=== PATIENT | male | born 1995 | race African-American/Black ===

== ENCOUNTER 2018-07-06 15:16 | Inpatient (IN) | payer BC, OTHER ==
[~2018-07-06] VITALS: Ht 177.8 cm; Wt 72.6 kg
--- NOTE | 2018-09-13 20:00 | NUR ---
PRE ADMISSION NOTE Pt is a 23 y/o male seen at intake, A&Ox4 and is ambulatory with steady gait. Pt presents with anxiety, body aches, stuffy nose, difficulty concentrating, poor eye contact and slumped posture. Pt is here for heroin (smoke) 1-2 g daily for 2 months, last intake of 2 g today at 1400. Pt also used Xanax 4-8 mg daily for 2 months, last intake of 8 mg at 0900 today and methamphetamine (smoke or snort) 2 g daily for 2 months, last intake of 1.5 g today at 1400. Pt also smokes marijuana 2 g daily, last intake of 2 g 2 days ago. NKA and PMH of epilepsy and seizures r/t withdrawal and anxiety. Vital signs: BP 159/83, HR 86, T 98.2, RR 16, 02 97%, and pain 5/10 body aches. Pt is stable to arrive on the unit. Addendum: 09/14/18 at 0119 by DONAVAN HWANG RN CORRECTION: Length of use is 1 month for all substances.
[2018-09-13] MEDS ORDERED: MAG HYDROX/AL HYDROX/SIMETH 30 ML LIQUID UDC PO PRN (20:15)
[2018-09-13] MEDS ORDERED: diphenhydrAMINE 50 MG CAPSULE PO PRN (20:15)
[2018-09-13] MEDS ORDERED: CLONIDINE HCL 0.1 MG TABLET PO PRN (20:15)
[2018-09-13] MEDS ORDERED: LOPERAMIDE HCL 2 MG CAPSULE PO PRN (20:15)
[2018-09-13] MEDS ORDERED: METHOCARBAMOL 750 MG TABLET PO PRN (20:15)
[2018-09-13] MEDS ORDERED: ONDANSETRON ODT 4 MG TAB.RAPDIS SL PRN (20:15)
[2018-09-13] MEDS ORDERED: SRC BENZO WITHDRAWAL ADMITTING PROTOCOL XX PRN (20:15)
[2018-09-13] MEDS ORDERED: HYDROXYZINE PAMOATE 25 MG CAPSULE PO PRN (20:15)
[2018-09-13] MEDS ORDERED: MAGNESIUM HYDROXIDE 30 ML LIQUID UDC PO PRN (20:15)
[2018-09-13] MEDS ORDERED: MIRALAX 17 GM POWD.PACK PO PRN (20:15)
[2018-09-13] MEDS ORDERED: IBUPROFEN 600 MG TABLET PO PRN (20:15)
[2018-09-13] MEDS ORDERED: LORAZEPAM 1 MG TABLET PO PRN ×2 (20:15)
[2018-09-13] MEDS ORDERED: SRC OPIOID WITHDRAWAL ADMITTING PROTOCOL XX PRN (20:15)
[2018-09-13] MEDS ORDERED: ONDANSETRON 4 MG/2 ML VIAL IM PRN (20:15)
[2018-09-13] MEDS ORDERED: ACETAMINOPHEN 325 MG TABLET PO PRN (20:15)
[2018-09-13] MEDS ORDERED: LORAZEPAM 2 MG/1 ML VIAL IM PRN (20:15)
[2018-09-13 20:18] VITALS: BP 159/83
--- NOTE | 2018-09-13 20:18 | NUR ---
ADMISSION NOTE Pt arrived on the unit at 2018 for medically supervised withdrawal from benzos and opiates. Skin and body check completed, no contraband found and skin intact. Pt has not provided UDS, but has provided blood draw. Pt is 510 and weighs 160 lbs. Initial COWS 10 and CIWA 9. Pt presents with anxiety, body aches, stuffy nose, restlessness, stomach cramps, difficulty concentrating, poor eye contact and slumped posture. Pt is ambulatory with steady gait. PEERLA. Respirations even and unlabored, lung sounds clear. Pt reports last BM this morning. Vital signs: BP 159/83, HR 86, T 98.2, RR 16, 02 97%, and pain 5/10 body aches. Substance Use History: 1. Xanax 4-8 mg daily for 1 month, last intake of 8 mg at 0900 today. Pt started using Xanax 8 years ago d/t anxiety. 2. Heroin (smoke) 2 g daily for 1 month, last intake of 2 g at 1400 today. Pt started using heroin 3 years ago d/t anxiety. 3. Methamphetamine (smoke/snort, mostly smoke) 2 g daily for 1 month, last intake of 1.5 g at 1400 today. Pt started using methamphetamine 2 years ago d/t poor social influences. 4. Marijuana 2 g daily for 1 month, last intake of 2 g on 09/11/18. Pt started smoking marijuana 10 years ago d/t poor social influences. Pt reports the following treatment histories: [facility] between July 06-2017, [facility] in [place] for 32 days after [facility] in June 2018, [facility] in [place] for 4 days in May 2018 and [facility] in [place] for 29 days in June 2016. Pt reports leaving AMA at [facility] and relapsed after. Pt also reports relapsing after the 32 days from [facility] after discharge from [facility] in June 2018. Pt relapsed after 2 weeks from [facility] in 2015. Pt reports that he has difficulty staying sober and states, "I always go back to [place] with all my old friends and social influences which doesn't help." Pt also stated, "I feel like it's because of me too, like how bad I want to actually get sober, and certain people and situations I put myself into doesn't help and I relapse." He reports his longest period of sobriety was 32 days at [facility] in June-July 2018. Pt reports that this time will be different and states, "This time I genuinely want to be sober and I feel like it's really just taken me three times of going back to [place] to realize I need to try something different because this time I'm moving to [place]." He reports that he has had 4 attempts of sobriety at a treatment facility, but "countless attempts" on his own. Typical S/S of withdrawal include the following: anxiety, chills, sweats, tremors, body aches, and runny nose. Pt reports financial strain as a consequence of using. Denies hx of overdoses, but states he has had "close to 100 blackouts from benzo use." Pt reports his support system includes his family and friends. He sleeps at friends couches in [place] and is currently unemployed. He reports having a Bachelors Degree in Criminology. Pt is full code, regular diet, NKA to food or meds, and on fall/seizure precautions. Pt reports PMH of anxiety and epilepsy. Pt did not bring his home medications, but reports taking Lamictal ER 250 mg daily in AM and Keppra 750 mg BID. Pt started smoking recently and reports smoking 1 pack daily and does not have a desire to quit at this time. Pt is not a candidate for MRSA. PCP is Dr. Weston and psychiatrist is Dr. Trevino. Pt reports that his mother has hx of ETOH abuse and his brother and father drink socially. Encouraged pt to be open and honest in his recovery. Oriented pt to room and unit, educated pt about rules and expectations of the unit and how to use the call light.
[2018-09-13 20:24] LABS: BASOPHILS # (AUTO) 0.1 K/uL (0.0-8.0); BASOPHILS % (AUTO) 0.4 % (0.0-2.0); EOSINOPHILS # (AUTO) 2.8 K/uL (0.0-0.7); EOSINOPHILS % (AUTO) 20.5 % (0.0-7.0); HEMATOCRIT 50.8 % (36.7-47.1); HEMOGLOBIN 17.6 g/dL (12.5-16.3); LYMPHOCYTES # (AUTO) 3.1 K/uL (20.0-40.0); LYMPHOCYTES % (AUTO) 23.1 % (20.5-51.5); MEAN CORPUSCULAR HEMOGLOBIN 31.3 uug (23.8-33.4); MEAN CORPUSCULAR HGB CONC 35 g/dL (32.5-36.3); MEAN CORPUSCULAR VOLUME 90.5 fL (73.0-96.2); MONOCYTES # (AUTO) 0.9 K/uL (2.0-10.0); MONOCYTES % (AUTO) 6.9 % (0.0-11.0); NEUTROPHILS # (AUTO) 6.7 K/uL (1.8-8.9); NEUTROPHILS % (AUTO) 49.1 % (38.5-71.5); PLATELET COUNT (AUTO) 306 K/uL (152-348); RED BLOOD CELL COUNT(AUTO) 5.62 MIL/uL (4.06-5.63); WHITE BLOOD COUNT (AUTO) 13.6 K/uL (3.6-10.2)
[2018-09-13 20:37] LABS: ETHANOL < 3 MG/DL (0-0)
[2018-09-13 20:41] LABS: ALANINE AMINOTRANSFERASE 32 U/L (16-63); ALKALINE PHOSPHATASE 101 U/L (50-136); ASPARTATE AMINOTRANSFERASE 25 U/L (15-37); BILIRUBIN,TOTAL 0.4 mg/dL (0.2-1.0); CARBON DIOXIDE 32 mmol/L (21-32); CHLORIDE 95 mmol/L (98-107); CREATININE 0.9 mg/dL (0.6-1.3); GLUCOSE 95 mg/dL (74-106); MAGNESIUM 1.8 mg/dL (1.8-2.4); POTASSIUM 3.8 mmol/L (3.5-5.1); TOTAL PROTEIN, SERUM 8.9 g/dL (6.4-8.2); UREA NITROGEN, BLOOD 6 mg/dL (7-18)
[2018-09-13 20:51] LABS: THYROID STIMULATING HORMONE 1.266 mIU/mL (0.358-3.740)
[2018-09-13 20:55] LABS: EOSINOPHILS % (MANUAL) 21 % (0-8); LYMPHOCYTES % (MANUAL) 25 % (20-40); MONOCYTES % (MANUAL) 6 % (2-10); NEUTROPHILS % (MANUAL) 48 % (42-75)
[2018-09-13] MEDS: BUPRENORPHINE HCL 2 MG TAB.SUBL SL PRN (23:33)
--- NOTE | 2018-09-13 23:33 | NUR ---
PRN SUBUTEX AND ATIVAN 1 MG ADMINISTRATION COWS 13 and CIWA 12. Pt presents with anxiety, restlessness, chills, hot and cold sweats, elevated HR, stuffy nose, photosensitivity, body aches, enlarged pupils, and stomach cramps. Safety measures in place. Call light within reach. Will continue to monitor.
[2018-09-14] VITALS: BP 147/98
--- NOTE | 2018-09-14 00:03 | NUR ---
PRN SUBUTEX REASSESSMENT COWS 9. Pt reports improvement in anxiety, restlessness, and body aches. Pt is laying in bed at this time. Respirations even and unlabored. Safety measures in place. Call light within reach. Will continue to monitor.
--- NOTE | 2018-09-14 00:33 | NUR ---
PRN ATIVAN 1 MG REASSESSMENT Pt laying in bed with eyes closed, reassessment of CIWA to be deferred until pt is awake. Respirations even and unlabored. Safety measures in place. Call light within reach. Will continue to monitor.
[2018-09-14] MEDS ORDERED: LAMO250T PO (01:48)
[2018-09-14] MEDS ORDERED: LEVE500T9 PO (01:48)
[2018-09-14 03:49] LABS: *AMPHETAMINE, URINE POSITIVE (NEGATIVE); *BARBITURATE, URINE NEGATIVE (NEGATIVE); *CANNABINOID, URINE POSITIVE (NEGATIVE); *COCCAINE, URINE NEGATIVE (NEGATIVE); *OPIATE, URINE POSITIVE (NEGATIVE); *PHENCYCLIDINE SCREEN,URINE NEGATIVE (NEGATIVE)
[2018-09-14 04:00] VITALS: BP 144/96
--- NOTE | 2018-09-14 07:28 | NUR ---
END OF SHIFT Pt is a 23 y/o male admitted on 09/13/18 for medically supervised withdrawal from benzos and opiates. Pt was also using methamphetamine. Pt presented with anxiety, body aches, stuffy nose, restlessness, stomach cramps, difficulty concentrating, poor eye contact, and slumped posture. PRN Subutex and Ativan 1 mg administered at 2330, which were effective. Last COWS 9 and CIWA 12. Pt slept 7 hours. Intake 1490 ml, void x 2, stool x 0. Safety measures in place. Call light within reach. Pts needs have been met. Endorsed to day shift nurse.
--- NOTE | 2018-09-14 07:30 | NUR ---
Start of Shift Notes: Received endorsement from night nurse. Patient is a 23 year old male admitted for BZO and opiate withdrawal who is on PRNs at this time to manage his withdrawal symptoms. Per night report, patient was given PRN Ativan and Subutex during the night. Last . Slept for a total of 7 hours. Received patient in his room. Awake, alert and oriented x 4. Denies S/I or H/I noted. No AV hallucinations. However, he complains of mild light sensitivity and prefers the room dark. He is noted to be diaphoretic with facial flushing. Restlessness is seen to his BLE and with noted gross tremors and piloerection of the skin. Educated patient on his current plan of care for the day and his medication regimen. Encouraged oral fluid intake and encouraged group participation to learn new skills to prevent relapse. All needs met and attended. Will continue to monitor closely.
[2018-09-14 08:00] VITALS: BP 119/67
[2018-09-14] MEDS: BUPRENORPHINE HCL 2 MG TAB.SUBL SL PRN (08:39)
[2018-09-14] MEDS: MULTIVITAMINS,THERAPEUTIC TABLET PO SCH (08:39)
--- NOTE | 2018-09-14 08:39 | NUR ---
Subutex 4 mg/Ativan 2 mg PO given: 14/ 16, patient noted with diaphoresis with facial flushing, gross tremors, anxiety, agitation, irritability, restlessness, mild light sensitivity and mild bone/joint aches. Medicated patient with Subutex 4 mg SL and Ativan 2 mg PO as ordered. Will monitor for effectiveness.
[2018-09-14] MEDS ORDERED: TUBERCULIN,PURIF.PROT.DERIV. 5 TU/0.1 ML TEST ID ONE (09:00)
--- NOTE | 2018-09-14 09:09 | NUR ---
Re-assessment: Subutex 4 mg SL COWS 9, patient appears less anxious and less yawning noted. He continues to complain of intermittent perspiration and chills, and sweats. PRN Subutex was effective in reducing his withdrawal symptoms.
--- NOTE | 2018-09-14 09:39 | NUR ---
Re-assessment: Ativan CIWA 13, patient noted with less anxiety, less sweating, and less agitation noted. PRN Ativan effective in reducing his withdrawal symptoms. Will continue to monitor.
--- NOTE | 2018-09-14 10:40 | NUR ---
Therapist prompted client to attend group therapy.
--- NOTE | 2018-09-14 11:07 | NUR ---
RT prompted pt to attend rec therapy groups.
[2018-09-14 12:00] VITALS: BP 129/72
[2018-09-14] MEDS ORDERED: 5 DAY TAPER BUPRENORPHINE -SERENITY PROTOCOL SL PRN (12:45)
[2018-09-14] MEDS ORDERED: DIAZEPAM 10 MG TABLET PO PRN ×2 (12:45)
[2018-09-14] MEDS ORDERED: 5 DAY TAPER VALIUM-SERENITY PROTOCOL PO PRN (12:45)
[2018-09-14] MEDS ORDERED: DIAZEPAM 5 MG TABLET PO PRN (12:45)
[2018-09-14] MEDS ORDERED: LAMOTRIGINE 250 MG PO SCH (13:00)
[2018-09-14] MEDS: BUPRENORPHINE HCL 2 MG TAB.SUBL SL SCH ×3 (13:16→20:37)
[2018-09-14] MEDS: LEVETIRACETAM 500 MG TABLET PO SCH ×2 (13:16→16:21)
[2018-09-14] MEDS: DIAZEPAM 10 MG TABLET PO SCH ×2 (14:19→20:38)
[2018-09-14 16:00] VITALS: BP 138/85
--- NOTE | 2018-09-14 18:46 | NUR ---
End of Shift Notes: Patient initiated his 5day Valium and 5-day Subutex taper as ordered to manage his withdrawal symptoms related to BZO and opiates. VS monitored closely. No significant abnormalities noted. Withdrawal symptoms were closely monitored. Initial COWS 14, CIWA 16. Patient presented with facial flushing, diaphoresis, difficulty concentrating, fatigue, gross tremors, anxiety, agitation, chills, hot flashes, restlessness and generalized discomfort. Medicated patient with Subutex 4 mg and Ativan 2 mg at 0839 with help. Last COWS 7/CIWA 11. Patient verbalizes that Valium and Subutex has been effective in reducing his withdrawal symptoms. Appetite fair. He was unable to participate in group and activities due to his withdrawal symptoms. All needs met and attended. Will continue to monitor closely.
--- NOTE | 2018-09-14 19:53 | NUR ---
START OF SHIFT NOTE Rcvd report from outgoing nurse. Pt is a 23 y/o male A/O to person, place, time, and purpose. Pt was admitted for medically supervised withdrawal from Benzodiazepines, and Opiates. Pt is on day 1 of a 5 day Subutex and Valium taper. Pt has been presenting w/ diarrhea, nausea, sweats, chills, body aches, drowsiness, anxiety, depressed mood, and flat affect. Pt rcvd PRN Subutex and Ativan, both were noted effective by outgoing nurse. Last CIWA 11 and COWS 7 @ 1600. Call light is within reach. Pt will continue to be monitored and needs met.
[2018-09-14 20:00] VITALS: BP 128/73
[2018-09-14] MEDS: LAMOTRIGINE 100 MG TABLET PO SCH ×2 (20:38→20:47)
[2018-09-14] MEDS: LAMOTRIGINE 25 MG TABLET PO SCH ×2 (20:38→20:47)
--- NOTE | 2018-09-14 20:38 | NUR ---
PRN IMODIUM ADMINISTRATION Imodium 4mg given for first bought of diarrhea. Will reassess pt in 1hr.
--- NOTE | 2018-09-14 20:40 | NUR ---
NURSING NOTE Pt refused to take Lamictal, both the 100 and 25mg doses. Pt states that he only takes it in the morning and that he told the doctor this. I educated him on risks of not taking medication when prescribed. He still refused. Medication was pulled and opened before pt stated all this.
--- NOTE | 2018-09-14 21:38 | NUR ---
PRN IMODIUM REASSESSMENT Pt states that he has not had any bought of diarrhea. He also states that he hasn't had a BM yet either. Will continue to monitor pt.
--- NOTE | 2018-09-15 | NUR ---
CIWA AND COWS DEFERRED. V/S REFUSED Pt is in bed w/ his eyes closed. Pt's respirations are unlabored and even.
--- NOTE | 2018-09-15 04:00 | NUR ---
CIWA AND COWS DEFERRED. V/S REFUSED Pt is in bed w/ his eyes closed. Pt's respirations are unlabored and even.
--- NOTE | 2018-09-15 07:14 | NUR ---
END OF SHIFT NOTE Endorsed pt to oncoming nurse. Pt is a 23 y/o male A/O to person, place, time, and purpose. Pt was admitted for medically supervised withdrawal from Benzodiazepines, and Opiates. Pt completed day 1 of a 5 day Subutex and Valium taper. Pt continued presenting w/ diarrhea, nausea, sweats, chills, body aches, drowsiness, anxiety, depressed mood, and flat affect. Pt denies any S/I or H/I. PRN Imodium was given and noted effective. Pts fluid intake was 1180ml and he slept for 9hrs. Last CIWA 12 and COWS 12 @ 1999. Call light is within reach.
--- NOTE | 2018-09-15 07:15 | NUR ---
Start of Shift Notes: Received endorsement from night nurse. Patient is a 23 year old male admitted for BZO and opiate withdrawal who is placed on a 5-day Valium and 5-day Subutex taper as ordered. This is patient's 2nd day of his taper. Per night report, patient was given PRN Imodium during the night. Last . Slept for a total of 9 hours. Received patient in his room. Awake, alert and oriented x 4. Denies S/I or H/I noted. No AV hallucinations. However, he complains of mild light sensitivity and prefers the room dark. He is noted with facial flushing and restless. Gross tremors and piloerection of the skin noted. Educated patient on his current plan of care for the day and his medication regimen. Encouraged oral fluid intake and encouraged group participation to learn new skills to prevent relapse. All needs met and attended. Will continue to monitor closely.
[2018-09-15 08:00] VITALS: BP 121/69
[2018-09-15] MEDS: BUPRENORPHINE HCL 2 MG TAB.SUBL SL SCH ×3 (09:03→21:21)
[2018-09-15] MEDS: MULTIVITAMINS,THERAPEUTIC TABLET PO SCH (09:03)
[2018-09-15] MEDS: LEVETIRACETAM 500 MG TABLET PO SCH ×2 (09:03→16:38)
[2018-09-15] MEDS: DIAZEPAM 5 MG TABLET PO SCH ×4 (09:04→21:21)
[2018-09-15] MEDS: LAMOTRIGINE 25 MG TABLET PO SCH ×2 (09:04→21:21)
[2018-09-15] MEDS: LAMOTRIGINE 100 MG TABLET PO SCH ×2 (09:04→21:21)
[2018-09-15] MEDS: LOPERAMIDE HCL 2 MG CAPSULE PO PRN (09:04)
--- NOTE | 2018-09-15 09:04 | NUR ---
Imodium 2 mg PO given: Patient noted with x 2 episodes of loose watery stools. Patient states "I think I'm kicking it hard." Medicated patient with Imodium 2 mg Po as ordered. Will monitor for effectiveness.
--- NOTE | 2018-09-15 10:04 | NUR ---
Re-assessment: Imodium Patient reports no further episodes of loose watery stools after Imodium was administered. PRN Imodium was effective.
[2018-09-15 12:00] VITALS: BP 133/72
--- NOTE | 2018-09-15 14:15 | NUR ---
Therapist prompted client to attend all group therapy sessions daily.
[2018-09-15 16:00] VITALS: BP 116/66
--- NOTE | 2018-09-15 19:12 | NUR ---
End of Shift Notes: Patient continues to be on 5-day Valium and 5-day Subutex taper as ordered to manage his withdrawal symptoms related to BZO and opiates. VS monitored closely. No significant abnormalities noted. Withdrawal symptoms were closely monitored. Initial COWS 14, 14. Patient presented with facial flushing, diaphoresis, difficulty concentrating, fatigue, gross tremors, anxiety, agitation, chills, hot flashes, restlessness, diarrhea and generalized discomfort. Medicated patient with Imodium 2 mg PO at 0904.. Last COWS 9/ 11. Patient verbalizes that Valium and Subutex has been effective in reducing his withdrawal symptoms. Appetite fair. He was unable to participate in group and activities due to his withdrawal symptoms. All needs met and attended. Will continue to monitor closely.
--- NOTE | 2018-09-15 19:48 | NUR ---
START OF SHIFT NOTE Rcvd report form outgoing nurse. Pt is a 23 y/o male A/O to person, place, time, and purpose. Pt was admitted for medically supervised withdrawal from Benzodiazepines and Opiates. Pt is on day 2 of a 5 day Valium and Subutex taper. Pt has been presenting w/ flushing, sweats, chills, body aches, restlessness, diarrhea, nausea, anxiety, agitation, flat affect, and depressed and withdrawn mood. Pt rcvd PRN Imodium and was noted ineffective by outgoing nurse. Last CIWA 11 and COWS 9 @ 1600. Call light is within reach. Pt will continue to be monitored and needs met.
[2018-09-15 20:00] VITALS: BP 138/81
--- NOTE | 2018-09-16 | NUR ---
CIWA AND COWS DEFERRED. V/S REFUSED Pt is in bed w/ his eyes closed. Pt's respirations are unlabored and even.
--- NOTE | 2018-09-16 04:00 | NUR ---
CIWA ANC COWS DEFERRED. Pt is in bed w/ his eyes clsoed. Pt's respirations are unlabored and even.
--- NOTE | 2018-09-16 07:15 | NUR ---
END OF SHIFT NOTE Endorsed pt to oncoming nurse. Pt is a 23 y/o male A/O to person, place, time, and purpose. Pt was admitted for medically supervised withdrawal from Benzodiazepines and Opiates. Pt completed day 2 of a 5 day Valium and Subutex taper. Pt continues presenting w/ flushing, sweats, chills, body aches, restlessness, diarrhea, nausea, anxiety, agitation, flat affect, and depressed and withdrawn mood. Pt denies any S/I or H/I. No PRN medications were given during current shift. Pts fluid intake was 1000ml and he slept for 7hrs. Last CIWA 13 and COWS 13 @ 1999. Call light is within reach.
[2018-09-16 08:00] VITALS: BP 119/70
--- NOTE | 2018-09-16 08:08 | NUR ---
START OF SHIFT Received report from night nurse, 23 year male admitted for Benzo/Opioids Withdrawal. Patient placed on 5 days Subutex and 5 days Valium taper tolerating well. Per endorsement patient did not receive any PRN'S, slept for 7 hours, last CIWA-/-13. Received patient asleep responsive to verbal and tactile stimuli, breathing normal no SOB noted. Respiration even non labored. Skin intact warm and dry tot touch. All safety measures in place. Will cont to monitor.
[2018-09-16] MEDS: MULTIVITAMINS,THERAPEUTIC TABLET PO SCH (08:54)
[2018-09-16] MEDS: LAMOTRIGINE 100 MG TABLET PO SCH ×2 (08:54→21:13)
[2018-09-16] MEDS: DIAZEPAM 5 MG TABLET PO SCH ×3 (08:54→21:13)
[2018-09-16] MEDS: LAMOTRIGINE 25 MG TABLET PO SCH ×2 (08:54→21:13)
[2018-09-16] MEDS: LEVETIRACETAM 500 MG TABLET PO SCH ×2 (08:54→21:13)
[2018-09-16] MEDS ORDERED: BUPRENORPHINE HCL 2 MG TAB.SUBL SL SCH (09:00)
[2018-09-16 09:45] LABS: BASOPHILS % (AUTO) 0.1 % (0.0-2.0); EOSINOPHILS # (AUTO) 2.3 K/uL (0.0-0.7); EOSINOPHILS % (AUTO) 19.6 % (0.0-7.0); HEMATOCRIT 47.9 % (36.7-47.1); HEMOGLOBIN 16.6 g/dL (12.5-16.3); LYMPHOCYTES # (AUTO) 3.3 K/uL (20.0-40.0); MEAN CORPUSCULAR HEMOGLOBIN 31.8 uug (23.8-33.4); MEAN CORPUSCULAR HGB CONC 35 g/dL (32.5-36.3); MEAN CORPUSCULAR VOLUME 91.8 fL (73.0-96.2); MONOCYTES # (AUTO) 1.2 K/uL (2.0-10.0); MONOCYTES % (AUTO) 9.8 % (0.0-11.0); NEUTROPHILS # (AUTO) 5.1 K/uL (1.8-8.9); NEUTROPHILS % (AUTO) 42.5 % (38.5-71.5); PLATELET COUNT (AUTO) 265 K/uL (152-348); RED BLOOD CELL COUNT(AUTO) 5.22 MIL/uL (4.06-5.63); WHITE BLOOD COUNT (AUTO) 11.9 K/uL (3.6-10.2)
[2018-09-16 12:00] VITALS: BP 112/63
[2018-09-16 12:06] LABS: HEPATITIS B SURFACE AG Negative (Negative)
--- NOTE | 2018-09-16 12:56 | NUR ---
Therapist prompted client to attend all daily group therapy sessions.
[2018-09-16] MEDS: BUPRENORPHINE HCL 2 MG TAB.SUBL SL SCH ×2 (14:18→21:13)
[2018-09-16 16:00] VITALS: BP 114/62
--- NOTE | 2018-09-16 19:13 | NUR ---
END OF SHIFT Patient is alert awake oriented x4, patient is a 23 year old male admitted for Benzo/Opioid withdrawal. Patient continues on 5 days Subutex and 5 days Valium taper tolerating well. Patient presented with poor eye contact, anxiety, agitation, fatigue, restless, chills, bilateral hand tremors, runny nose. Patient received his scheduled medications tolerated well. Patient did not receive any PRN'S. Patient encouraged to socialized with others and verbalized his feelings. Encourage PO fluids as tolerated. Last CIWA score-10/COWS-11 at 1600. Vital signs WNL.Patient denies any SI/HI. All safety measures in place. Patient endorsed to night nurse in stable condition.
--- NOTE | 2018-09-16 19:30 | NUR ---
START OF SHIFT Pt is a 23 y/o male admitted on 09/13/18 for medically supervised withdrawal from benzos and opiates. Pt is on a 5 day Subutex and 5 day Valium taper, tolerating well. Last CIWA 10 and COWS 10 and no PRNs administered during day shift. Pt was asleep through most of day shift. Upon assessment pt presents with anxiety, teary eyes, nausea, poor appetite, difficulty staying asleep, lethargy, sweats, fatigue, chills, runny nose, headache, poor eye contact, slumped posture, disheveled appearance, and unkempt room. Medications due. Safety measures in place. Call light within reach. Will continue to monitor.
[2018-09-16 20:00] VITALS: BP 124/71
--- NOTE | 2018-09-17 | NUR ---
VITALS REFUSED Pt laying in bed with eyes closed, vitals refused. Respirations even and unlabored. Safety measures in place. Call light within reach. Will continue to monitor.
--- NOTE | 2018-09-17 07:14 | NUR ---
END OF SHIFT Pt is a 23 y/o male admitted on 09/13/18 for medically supervised withdrawal from benzos and opiates. Pt is on a 5 day Subutex and 5 day Valium taper, tolerating well. Pt presented with anxiety, teary eyes, nausea, poor appetite, difficulty staying asleep, lethargy, sweats, fatigue, chills, runny nose, headache, poor eye contact, slumped posture, disheveled appearance, difficulty staying asleep and unkempt room. Scheduled medications administered, effective in S/S of withdrawal as verbalized by pt. No PRNs administered. Last COWS 12 and CIWA 13. Pt slept 11 hours. Intake 1000 ml, void x 3, stool x 0. Safety measures in place. Call light within reach. Pts needs have been met. Endorsed to day shift nurse.
--- NOTE | 2018-09-17 07:33 | NUR ---
Start of Shift Notes: Received endorsement from night nurse. Patient is a 23 year old male admitted for BZO and opiate withdrawal who is placed on a 5-day Valium and 5-day Subutex taper as ordered. This is patient's 2nd day of his taper. Per night report, patient was not given any PRNs. Last . Slept for a total of 11 hours. Received patient in his room. Awake, alert and oriented x 4. Denies S/I or H/I noted. No AV hallucinations. He is noted with facial flushing and restlessness. Tremors noted to BUE while holding a water bottle. Anxious and agitated upon waking. Educated patient on his current plan of care for the day and his medication regimen. Encouraged oral fluid intake and encouraged group participation to learn new skills to prevent relapse. All needs met and attended. Will continue to monitor closely.
[2018-09-17 08:00] VITALS: BP 114/61
[2018-09-17] MEDS: BUPRENORPHINE HCL 2 MG TAB.SUBL SL SCH ×3 (08:51→21:14)
[2018-09-17] MEDS: LAMOTRIGINE 25 MG TABLET PO SCH ×2 (08:51→21:14)
[2018-09-17] MEDS: DIAZEPAM 5 MG TABLET PO SCH ×2 (08:51→21:14)
[2018-09-17] MEDS: LAMOTRIGINE 100 MG TABLET PO SCH ×2 (08:51→21:14)
[2018-09-17] MEDS: MULTIVITAMINS,THERAPEUTIC TABLET PO SCH (08:51)
[2018-09-17] MEDS: LEVETIRACETAM 500 MG TABLET PO SCH ×2 (08:52→21:14)
[2018-09-17 12:00] VITALS: BP 113/50
[2018-09-17] MEDS: LOPERAMIDE HCL 2 MG CAPSULE PO PRN (14:03)
--- NOTE | 2018-09-17 14:03 | NUR ---
Imodium 2 mg PO given: Patient reported x 2 episodes of loose watery stools. Medicated patient with Imodium 2 mg PO as ordered. Will monitor for effectiveness.
--- NOTE | 2018-09-17 15:03 | NUR ---
Re-asessment: Imodium Patient verbalizes that PRN Imodium was effective. No further episodes of diarrhea noted.
[2018-09-17 16:00] VITALS: BP 121/54
--- NOTE | 2018-09-17 19:04 | NUR ---
End of Shift Notes: Patient continues to be on 5-day Valium and 5-day Subutex taper as ordered to manage his withdrawal symptoms related to BZO and opiates. VS monitored closely. No significant abnormalities noted. Withdrawal symptoms were closely monitored. Initial COWS 10, CIWA 12, patient presented with facial flushing, diaphoresis, difficulty concentrating, fatigue, gross tremors, anxiety, agitation, chills, hot flashes, restlessness, diarrhea and generalized discomfort. Last COWS 9/CIWA 11. Patient verbalizes that Valium and Subutex has been effective in reducing his withdrawal symptoms. PRN Imodium given at 1403 with help. Appetite fair. He was unable to participate in group and activities due to his withdrawal symptoms and is withdrawn. Encouragement provided.
--- NOTE | 2018-09-17 19:36 | NUR ---
START OF SHIFT NOTE Rcvd report from outgoing nurse. Pt is a 23y/o male A/O to person, place, time, and purpose. Pt was admitted for medically supervised withdrawal from Benzodiazepines and Opiates. Pt is on day 4 of a 5 day Valium and Subutex taper. Pt has been presenting w/ diarrhea, body aches, fine tremors, restlessness, restless legs, chills, hot flashes, sweats, anxiety, depressed and withdrawn mood, and flat affect. Pt rcvd PRN Imodium and was noted effective by outgoing nurse. Last CIWA 11 and COWS 9 @ 1600. Call light is within reach. Pt will continue to be monitored.
[2018-09-17 20:00] VITALS: BP 130/64
--- NOTE | 2018-09-18 | NUR ---
CIWA AND COWS DEFERRED. V/S REFUSED Pt is in bed w/ his eyes closed. Pt's respirations are unlabored and even.
--- NOTE | 2018-09-18 04:00 | NUR ---
CIWA AND COWS DEFERRED. V/S REFUSED Pt is in bed w/ his eyes closed. Pt's respirations are unlabored and even.
--- NOTE | 2018-09-18 07:24 | NUR ---
END OF SHIFT NOTE Endorsed pt to oncoming nurse. Pt is a 23y/o male A/O to person, place, time, and purpose. Pt was admitted for medically supervised withdrawal from Benzodiazepines and Opiates. Pt completed day 4 of a 5 day Valium and Subutex taper. Pt continued presenting w/ diarrhea, body aches, fine tremors, restlessness, restless legs, chills, hot flashes, sweats, anxiety, depressed and withdrawn mood, and flat affect. Pt denies any S/I or H/I. No PRN medication was given during current shift. Pts fluid intake was 1092ml and he slept for 8hrs. Last CIWA 12 and COWS 9 @ 1999. Call light is within reach.
--- NOTE | 2018-09-18 07:30 | NUR ---
Start Of Shift Report received from sleep tech nurse. Patient is a 23 year old male admitted for BZO and opiate withdrawal. Per sleep tech nurse pt's last CIWA was 12 and COWS was a 10. Pt is continues his 5 day Valium and 5 Day Subutex tapers. Upon start of shift pt noted laying in his bed with his eyes closed resting, breathing even and unlabored. When greeted pt stated "I slept alright last night, today is my last day, can I just get my morning medications please. Pt's room appears unorganized, pt has water, soda bottles and candy wraps thrown around the room. Pt appears anxious, sweaty and flushed. During assessment, pt is AOx4. Lung sounds clear bilaterally. Radial pulse is regular and non-bounding. Abdomen soft and non-tender. Pt's skin is warm and intact. pt denies any pain at the moment. Encouraged pt to drink plenty of fluids to keep hydrated, compensate for all the fluid lost in sweat and help the detox process. Pt did not received any PRN medications last night, pt slept a total of 8 hours last night. Bed in lowest position. Side rails up x2. Call light functioning and within reach. All needs attended and met. Will continue to monitor.
[2018-09-18 08:00] VITALS: BP 130/68
[2018-09-18] MEDS ORDERED: BUPRENORPHINE HCL 2 MG TAB.SUBL SL SCH (09:00)
[2018-09-18] MEDS ORDERED: DIAZEPAM 5 MG TABLET PO SCH (09:00)
[2018-09-18] MEDS: LEVETIRACETAM 500 MG TABLET PO SCH ×2 (09:08→22:03)
[2018-09-18] MEDS: MULTIVITAMINS,THERAPEUTIC TABLET PO SCH (09:09)
[2018-09-18] MEDS: LAMOTRIGINE 25 MG TABLET PO SCH ×2 (09:09→22:04)
[2018-09-18] MEDS: LAMOTRIGINE 100 MG TABLET PO SCH ×2 (09:09→22:04)
[2018-09-18 12:00] VITALS: BP 129/70
--- NOTE | 2018-09-18 12:16 | NUR ---
RT prompted and encouraged pt to attend rec therapy groups.
[2018-09-18] MEDS ORDERED: LEVE750T4 PO (13:20)
[2018-09-18] MEDS ORDERED: LAMO250T PO (13:20)
--- NOTE | 2018-09-18 14:55 | NUR ---
Pt Endorsed Pt endorsed to RN on shift, pt is in stable condition A&OX4 no s/s of distress noted or reported, all medications given, process plans completed, nursing assessment completed.
[2018-09-18 16:30] VITALS: BP 122/64
--- NOTE | 2018-09-18 19:10 | NUR ---
END OF SHIFT Pt is a 23 yr old male, AA&OX4. Pt was admitted on 09/13/18 for Benzo/Opiate withdrawal and completed a 5 day Subutex taper and 5 day Valium taper as ordered. Pt has been observed isolative and guarded and remained in his room throughout the day and refused to attend group. Pt is observed disheveled. Last COWS score was 7 and CIWA score 6 at 1630. No PRNs were given during the day. Pt is to be discharged tomorrow. Endorsed to cook night nurse to continue with care.
--- NOTE | 2018-09-18 19:30 | NUR ---
START OF SHIFT Pt is a 23 y/o male admitted on 09/13/18 for benzo and opiate withdrawal. Pt finished a 5 day Subutex and 5 day Valium taper and is scheduled to be d/c tomorrow. Last COWS 7 and CIWA 6 and no PRNs administered during day shift. Upon assessment pt presents with anxiety, lethargy, fatigue, chills, disheveled appearance, poor eye contact, unkempt room and is withdrawn. Medications due. Safety measures in place. Call light within reach. Will continue to monitor.
[2018-09-18 20:00] VITALS: BP 122/68
--- NOTE | 2018-09-18 22:05 | NUR ---
PRN BENADRYL ADMINISTRATION Pt requests sleep aid. Safety measures in place. Call light within reach. Will continue to monitor.
--- NOTE | 2018-09-18 23:05 | NUR ---
PRN BENADRYL REASSESSMENT Pt laying in bed with eyes closed, medication noted effective. Respirations even and unlabored. Safety measures in place. Call light within reach. Will continue to monitor.
--- NOTE | 2018-09-19 | NUR ---
VITALS REFUSED Pt laying in bed with eyes closed. Vitals refused. Respirations even and unlabored. Safety measures in place. Call light within reach. Will continue to monitor.
--- NOTE | 2018-09-19 03:59 | NUR ---
PRN ZOFRAN IM ADMINISTRATION Pt had an episode of emesis and reports nausea. Pt felt nauseous and vomited after coming back from smoking. Safety measures in place. Call light within reach. Will continue to monitor.
[2018-09-19 04:00] VITALS: BP 139/80
--- NOTE | 2018-09-19 04:29 | NUR ---
PRN ZOFRAN REASSESSMENT Pt reports no further episodes of vomiting and reports no nausea. Safety measures in place. Call light within reach. Will continue to monitor.
--- NOTE | 2018-09-19 04:30 | NUR ---
DISCHARGE NOTE Pt is in stable condition, vitals WNL, and all discharge paper work is signed and dated. Pt was discharged from [facility] on 09/19/18 at 0430. Pt left the building with all of his belongings and prescriptions. Pt received copy of all paperwork. Pt d/c to [facility].
== END 2018-09-19 04:30 | DRG 895 ==
LOC: SRC 09-13 19:48
PROVIDERS: ADMIT Family Medicine Addiction Medicine; ATTEND Family Medicine Addiction Medicine
PROC: HZ2ZZZZ Detoxification Services for Substance Abuse Treatment (ICD-10-PCS; principal; 2018-09-13)
PROC: HZ31ZZZ Individual Counseling for Substance Abuse Treatment, Behavioral (ICD-10-PCS; 2018-09-15)
DX: F13.230 Sedative, hypnotic or anxiolytic dependence with withdrawal, uncomplicated (principal); G40.919 Epilepsy, unspecified, intractable, without status epilepticus; F11.23 Opioid dependence with withdrawal; F15.23 Other stimulant dependence with withdrawal; F41.1 Generalized anxiety disorder; F12.10 Cannabis abuse, uncomplicated; F17.210 Nicotine dependence, cigarettes, uncomplicated; Z81.1 Family history of alcohol abuse and dependence; Z79.899 Other long term (current) drug therapy
CPT/HCPCS: 36415; 80307; 80324; 80349; 80361; 83735; 84443; 85025; 86592; 86705; 86803; 87340; 87806; A4663; G0480; J2405; Q0162; Q0163